=== PATIENT | female | born 1965 | race Caucasian/White ===

== ENCOUNTER 2024-08-02 21:07 | Emergency (ER) | payer OTHER, SELFPAY ==
[2024-08-02 21:12] VITALS: BP 170/99
[2024-08-02 21:35] LABS: % Basophils 0.4 % (0-2); % Eosinophils 0.4 % (0-6); % Immature Granulocytes 0.5 % (0-0.5); % Lymphocytes 17.9 % (20.5-51.1); % Neutrophils 70.8 % (42.2-75.2); Absolute Basophils 0.1 10^3/uL (0-0.2); Absolute Eosinophils 0.1 10^3/uL (0-0.7); Absolute Immature Granulocytes 0.1 10^3/uL (0-0.05); Absolute Lymphocytes 2.5 10^3/uL (1.2-3.4); Absolute Monocytes 1.4 10^3/uL (0.1-0.6); Absolute Neutrophils 10.1 10^3/uL (1.4-6.5); Hematocrit 33.9 % (37.0-47.0); Mean Corp Hgb Conc. 35.4 g/dL (33.0-37.0); Mean Corpuscular Hgb 30.7 pg (27.0-31.0); Mean Corpuscular Volume 86.7 fL (81.0-99.0); Mean Platelet Volume 9.3 fL (7.4-10.4); Nucleated Red Blood Cells % 0 %; Platelet Count 273 10^3/uL (130-400); Red Blood Cell Count 3.91 10^6/uL (4.20-5.40); Red Cell Dist. Width 12.4 % (11.5-14.5); Urine Albumin Trace (Neg - Trace); Urine Bilirubin Negative (Negative); Urine Character Clear (Clear); Urine Color Yellow; Urine Glucose 3+ (Negative); Urine Ketone 2+ (Negative); Urine Leukocyte Negative (Negative); Urine Nitrite Negative (Negative); Urine Occult Blood 3+ (Negative); Urine Urobilinogen Negative (Neg - 1+); Urine pH 6.5 (5.0-9.0); White Blood Cell Count 14.2 10^3/uL (4.8-10.8)
[2024-08-02 21:42] LABS: Urine Red Blood Cell 30-40 /HPF (0-2)
[2024-08-02 21:43] LABS: Urine Bacteria Moderate (Negative)
[2024-08-02 21:47] LABS: ALT (SGPT) 39 U/L (0-35); AST (SGOT) 55 U/L (14-36); Albumin 4.1 g/dl (3.5-5.0); Alkaline Phosphatase 88 U/L (38-126); Blood Urea Nitrogen 14 mg/dl (7-17); Calcium 9.2 mg/dl (8.4-10.2); Carbon Dioxide 24 mmol/L (22-30); Chloride 102 mmol/L (98-107); Glucose 97 mg/dl (70-99); Lactic Acid 1.6 mmol/L (0.7-2.0); Potassium 3.3 mmol/L (3.5-5.1); Sodium 138 mmol/L (135-145); Total Bilirubin 0.7 mg/dl (0.2-1.3); Total Protein 6.9 g/dl (6.3-8.2); eGFR > 60.00
--- NOTE | 2024-08-02 22:50 | ED.GENMED ---
History of Present Illness
General
Chief Complaint: Fever
Source: patient and family
Exam Limitations: none
Time Seen by Provider: 08/02/24 22:43
Nursing documentation reviewed up to this point in time: agreed with
History of Present Illness
History of Present Illness:
59-year-old female presents emergency [facility] complaining of kidney infection. She was recently diagnosed with a UTI and started on antibiotic. She feels she is not getting better, and is having fevers and back pain. No aggravating relieving
factors.
Past History
Past History
ED Past Medical History: Other (DJD, back, Renal calculus, Lyme, endometriosis)
ED Past Surgical History: Appendectomy and Urological (Renal stent right)
Social History
Tobacco: Smoker
Alcohol: None
Drug: None
Personal:
Living: with family (Son)
Review of Systems
Review of Systems
Allergies reviewed?: Yes
All Other Systems: Not applicable
Constitutional: Reports fever
EENT: Reports no symptoms
Respiratory: Reports no symptoms
Cardiac: Reports no symptoms
ABD/GI: Reports no symptoms
: Reports flank pain
Musculoskeletal: Reports no symptoms
Skin: Reports no symptoms
Neurological: Reports no symptoms
Endocrine: Reports no symptoms
Hematologic/Lymphatic: Reports no symptoms
Psychiatric: Reports no symptoms
Phy Exam
Physical Exam
Physical Exam:
Physical Exam
General: no apparent distress, not acutely ill
Neck: supple. no meningeal signs. normal posterior pharynx
Heart: s1/s2 regular rate and rhythm, no murmur. equal radial
pulses.
HEENT: Pupils equal round reactive to light, EOMI, right TM erythematous, but no perforation
Lungs: no acute respiratory distress. clear bilaterally
Abdomen: normal bowel sounds. not tender. Bilateral CVAT
Neuro: alert and oriented. no focal neurological deficits cranial nerves II through XII intact
Skin: no rash
Psychiatric: well kept. interactive and cooperative
Extremities: no edema. no calf tenderness. negative homans. good distal pulses
Course
Orders/Labs/Results
Orders:
Orders
08/02/24 21:24
Complete Blood Count/With Diff Urgent
Comprehensive Metabolic Panel Urgent
Lactic Acid Urgent
Urine Culture Reflexed from UA [Urinalysis Reflex To Culture] Urgent
Date Specimen was Collected: 08/02/24
Time Specimen was Collected: 21:18
Urine Microscopic Reflex Cult Urgent
Urine Culture Urgent
TOMAS Source: U
Specimen Description:
Date Specimen was Collected: 08/02/24
Time Specimen was Collected: 21:18
08/02/24 22:50
COVID-19 Antigen Urgent
Source: Nasal Swab
08/03/24 00:15
CT Abd/pel Without Iv Or Oral Urgent
Reason For Exam: bilateral flank pain, fever, hematuria
08/03/24 01:34
Acetaminophen [Tylenol] 650 mg PO NOW STA
Azithromycin [Zithromax] 500 mg PO NOW STA
Abnormal Lab Results
08/02/24
21:24
WBC 14.2 H 10^3/uL
(4.8-10.8)
RBC 3.91 L 10^6/uL
(4.20-5.40)
Hct 33.9 L %
(37.0-47.0)
Abs Immat Gran (auto) 0.1 H 10^3/uL
(0-0.05)
Absolute Neuts (auto) 10.1 H 10^3/uL
(1.4-6.5)
Absolute Monos (auto) 1.4 H 10^3/uL
(0.1-0.6)
Lymphocytes % 17.9 L %
(20.5-51.1)
Monocytes % 10.0 H %
(1.7-9.3)
Potassium 3.3 L mmol/L
(3.5-5.1)
Creatinine 0.5 L mg/dL
(0.6-1.0)
AST 55 H U/L
(14-36)
ALT 39 H U/L
(0-35)
Urine Ketones 2+ A
(Negative)
Ur Occult Blood Reflex 3+ A
(Negative)
Urine RBC 30-40 A /HPF
(0-2)
Urine Bacteria (Reflex) Moderate A
(Negative)
Urine Glucose 3+ A
(Negative)
08/02/24 21:24
08/02/24 21:24
Vital Signs
Initial and Last Documented VS:
Initial Vital Signs
Pulse Resp BP Pulse Ox
102 20 170/99 99
08/02/24 21:12 08/02/24 21:12 08/02/24 21:12 08/02/24 21:12
Last Documented Vital Signs
Pulse Resp BP Pulse Ox
89 17 156/90 98
08/02/24 23:45 08/02/24 23:45 08/02/24 23:45 08/02/24 23:45
MDM/Problems Addressed
Differential Diagnosis Includes:
UTI, kidney stones
MDM/Problems Addressed:
59-year-old female with constipation, no signs of nephrolithiasis. Right otitis media.
Chronic conditions affecting care: HTN
Acute Exacerbation and/or Progression of Chronic Illness: HTN
*Radiology
Radiology exam reviewed: radiology read reviewed (ct a/p: no acute findings, moderate stool burden)
*Pulse Oximetry
Patient hypoxic: no
*Critical Care Note
Total Time (30-74mins, 75-104mins- exclusive of procedures): Not Applicable
Patient Management
Social determinants of health affecting care: Living situation
Escalation/DeEscalation of care consider admission/obs:
admit not indicated
ED Attending Note
-
Portions of this chart may have been created with voice recognition software.� Occasional wrong word or��sound alike� substitutions may have occurred due to the inherent limitations of voice recognition software.
Discharge Plan
Departure
Patient Disposition: Home (Routine Discharge)
Date of Disposition: 08/03/24
Time of Disposition: 01:37
Patient with high blood pressure during this ER visit?: Yes
Condition: Good
Covid-19: Negative COVID-19
Discharge Problem:
Constipation, Acute otitis media, right
Instructions: Constipation, Adult ED, Ear Infections in Adults (DC), BLOOD PRESSURE
Prescriptions:
New
azithromycin 250 mg tablet
250 mg PO DAILY 4 Days Qty: 4 0RF
No Action
acetaminophen 325 mg Tablet
650 mg PO Q4HPRN PRN (Reason: Mild Pain / Temp > 101) Qty: 20 0RF
ibuprofen 800 mg Tablet
800 mg PO DAILY
Patient Comments:
patient only took 200 mg
metoprolol succinate [metoprolol succinate] 25 mg tablet extended release 24 hr
25 mg PO DAILY Qty: 90 10RF
Entresto 24-26 mg tablet
1 tab PO BID Qty: 180 5RF
Farxiga 10 mg tablet
10 mg PO DAILY Qty: 90 5RF
Referrals:
Karolina Ham, DO [Active] - Call in 1-3 days for appt
NONE,* [Family Provider] -
Interventions
Interventions:
*Risk Screen - Suicide Last Done: 08/02/24 21:12
*General Assessment Last Done: 08/02/24 21:12
*Neglect/Abuse Screening Last Done: 08/02/24 21:12
ED- Fall Risk Assessment Last Done: 08/02/24 23:38
*ED COVID-19 Vaccine History Last Done: 08/03/24 00:00
ED- Neurological Assessment Last Done: 08/02/24 23:38
ED-Skin Assessment Last Done: 08/02/24 23:38
Discharge Date and Time
Print Language: KAZAKH
[2024-08-02 23:45] VITALS: BP 156/90
[2024-08-03 00:50] LABS: COVID-19 Antigen Negative (Negative)
[2024-08-03] MEDS: TYLENOL 650 MG PO (01:55)
[2024-08-03] MEDS: ZITHROMAX 500 MG PO (01:56)
[2024-08-03 02:03] VITALS: BP 142/88
== END 2024-08-03 02:07 | disposition home or self-care (01) ==
LOC: EMR 21:07
PROVIDERS: Emergency Medicine; EMERGENCY PHYSICIAN Emergency Medicine
DX: K59.00 Constipation, unspecified (principal); H66.91 Otitis media, unspecified, right ear; F17.200 Nicotine dependence, unspecified, uncomplicated
CPT/HCPCS: 99284; 74176; 80053; 81003; 81015; 83605; 85025; 87086; 87811

== ENCOUNTER 2025-03-09 21:40 | Emergency (ER) | payer OTHER, SELFPAY ==
[2025-03-09 21:42] VITALS: BP 154/96
[2025-03-09 22:09] LABS: Urine Albumin 1+ (Neg - Trace); Urine Bilirubin Negative (Negative); Urine Character Slightly Cloudy (Clear); Urine Color Yellow; Urine Glucose Negative (Negative); Urine Ketone Negative (Negative); Urine Leukocyte 3+ (Negative); Urine Nitrite Negative (Negative); Urine Occult Blood 3+ (Negative); Urine Specific Gravity 1.015 (<1.030); Urine Urobilinogen Negative (Neg - 1+)
[2025-03-09 22:15] LABS: Urine Squamous Cell 26-30 /LPF (Few)
[2025-03-09 22:16] LABS: Urine Bacteria Moderate (Negative); Urine White Cell >100 /HPF (0-5)
[2025-03-09 22:24] LABS: % Basophils 0.4 % (0-2); % Eosinophils 0.5 % (0-6); % Immature Granulocytes 0.3 % (0-0.5); % Lymphocytes 45.9 % (20.5-51.1); % Monocytes 5.3 % (1.7-9.3); % Neutrophils 47.6 % (42.2-75.2); ALT (SGPT) 13 U/L (0-35); AST (SGOT) 21 U/L (14-36); Absolute Eosinophils 0.1 10^3/uL (0-0.7); Absolute Lymphocytes 4.5 10^3/uL (1.2-3.4); Absolute Monocytes 0.5 10^3/uL (0.1-0.6); Absolute Neutrophils 4.7 10^3/uL (1.4-6.5); Albumin 4.5 g/dl (3.5-5.0); Alkaline Phosphatase 66 U/L (38-126); Blood Urea Nitrogen 15 mg/dl (7-17); Calcium 10.4 mg/dl (8.4-10.2); Carbon Dioxide 28 mmol/L (22-30); Chloride 107 mmol/L (98-107); Glucose 107 mg/dl (70-99); Hematocrit 40.7 % (37.0-47.0); Hemoglobin 13.7 g/dL (12.0-16.0); Lipase 78 U/L (23-300); Mean Corp Hgb Conc. 33.7 g/dL (33.0-37.0); Mean Corpuscular Hgb 30.3 pg (27.0-31.0); Mean Platelet Volume 8.9 fL (7.4-10.4); Nucleated Red Blood Cells % 0 %; Platelet Count 322 10^3/uL (130-400); Potassium 4.7 mmol/L (3.5-5.1); Red Blood Cell Count 4.52 10^6/uL (4.20-5.40); Red Cell Dist. Width 13.1 % (11.5-14.5); Sodium 143 mmol/L (135-145); Total Bilirubin 0.4 mg/dl (0.2-1.3); Total Protein 7.6 g/dl (6.3-8.2); White Blood Cell Count 9.8 10^3/uL (4.8-10.8); eGFR > 60.00
[2025-03-10] MEDS: TORADOL 30 MG IV (00:11)
[2025-03-10] MEDS: NSS 1000 IV (00:12)
[2025-03-10] MEDS: MORPHINE SULFATE 4 MG IV (00:12)
[2025-03-10 00:18] VITALS: BP 140/106
[2025-03-10 00:25] LABS: Urine Albumin Negative (Neg - Trace); Urine Bilirubin Negative (Negative); Urine Character Clear (Clear); Urine Color Yellow; Urine Glucose Negative (Negative); Urine Ketone Negative (Negative); Urine Leukocyte 3+ (Negative); Urine Nitrite Negative (Negative); Urine Occult Blood 1+ (Negative); Urine Urobilinogen Negative (Neg - 1+)
[2025-03-10 00:39] LABS: Urine Squamous Cell 16-20 /LPF (Few)
[2025-03-10 00:40] LABS: Urine Bacteria Many (Negative); Urine White Cell 26-30 /HPF (0-5)
[2025-03-10 01:45] VITALS: BP 146/105
[2025-03-10] MEDS: OMNICEF 300 MG PO (01:52)
--- NOTE | 2025-03-10 02:34 | ED.GENMED ---
History of Present Illness
General
Chief Complaint: Flank Pain
Source: patient
Exam Limitations: none
Time Seen by Provider: 03/09/25 23:18
Nursing documentation reviewed up to this point in time: agreed with
History of Present Illness
History of Present Illness:
pt is a 59 y/o F
with h/o infected kidney stones
CHF/cardiomyopathy
here with R back/hip pain
sometimes shoots into her R upper posterior thigh
worse with walking/changing position
no trauma
started about 4-5 days ago; went to and was given muscle relaxant but it hasn't helped; takes tylenol and motrin regularly already without relief
no weakness/numbness, incontiennce but felt like she wanted to make sure this wasn't pain from kidney infection or stone
no dysuria, hematuria, fever/chills, vomiting
does have h/o arthritis
no chronic opiates
Past History
Past History
ED Past Medical History: Other (DJD, back, Renal calculus, Lyme, endometriosis)
ED Past Surgical History: Appendectomy and Urological (Renal stent right)
Social History
Tobacco: Smoker
Alcohol: None
Drug: None
Personal:
Living: with family (Son)
Review of Systems
Review of Systems
Allergies reviewed?: Yes
All Other Systems: Not applicable
Phy Exam
Physical Exam
Physical Exam:
GENERAL: Alert , in no apparent distress, comfortable at rest
HEAD: NCAT
NECK: no midline tenderness, active ROM intact, no paraspinal muscle tenderness;
CARDIAC: Regular rate and rhythm, no edema
LUNGS: Clear breath sounds bilaterally, no acute respiratory distress, no wheezes/rales/rhonchi
ABDOMEN: Soft, without focal tenderness, no r/g, no cvat, normal bowel sounds, nondistended
NEUROLOGICAL: Alert and oriented, no focal neuro deficits, CN intact, 5/5 strength, sensation intact, ambulation slight limp left leg
SKIN: Warm and dry,
MUSCULOSKELETAL: No edema, well perfused. Normal inspection of the right hip/right leg
Patient has no tenderness to palpation of the hip, minimal tenderness in the SI joint
able to flex R hip but some pain with rotation;
Back: No midline tenderness, mild dextroscoliosis, mod R paraspinal tendernss and SI joint tendenress
neg straight leg raise
but most pain is with flexino of the hip
PSYCH: Normal and appropriate interaction.
Course
Orders/Labs/Results
Orders:
Orders
03/09/25 21:58
Complete Blood Count/With Diff Urgent
Comprehensive Metabolic Panel Urgent
Lipase Urgent
Urinalysis Reflex To Culture Urgent
Date Specimen was Collected: 03/09/25
Time Specimen was Collected: 21:45
Urine Microscopic Reflex Cult Urgent
Urine Culture Urgent
TOMAS Source: U
Specimen Description:
Date Specimen was Collected: 03/09/25
Time Specimen was Collected: 21:45
03/09/25 23:54
0.9% Sodium Chloride 1000 ml [Nss] 1,000 ml IV BOLUS
Ketorolac [Toradol] 30 mg IV NOW STA
Morphine Sulfate 4 mg IV NOW STA
03/09/25 23:55
Urinalysis Reflex To Culture Urgent
Date Specimen was Collected: 03/10/25
Time Specimen was Collected: 00:04
03/10/25 00:01
CT Abd/pel Without Iv Or Oral Urgent
Reason For Exam: R flank pain
03/10/25 00:16
Urine Microscopic Reflex Cult Urgent
Urine Culture Urgent
TOMAS Source: U
Specimen Description:
Date Specimen was Collected: 03/10/25
Time Specimen was Collected: 00:04
03/10/25 01:45
Cefdinir [Omnicef] 300 mg PO NOW STA
Abnormal Lab Results
03/09/25 03/10/25
21:58 00:16
Absolute Lymphs (auto) 4.5 H 10^3/uL
(1.2-3.4)
Glucose 107 H mg/dl
(70-99)
Calcium 10.4 H mg/dl
(8.4-10.2)
Ur Occult Blood Reflex 3+ A 1+ A
(Negative) (Negative)
Leukocyte Esterase Rfl 3+ A 3+ A
(Negative) (Negative)
Urine RBC 3-6 A /HPF 3-6 A /HPF
(0-2) (0-2)
Urine WBC (Reflex) >100 A /HPF 26-30 A /HPF
(0-5) (0-5)
Urine Bacteria (Reflex) Moderate A Many A
(Negative) (Negative)
Urine Albumin (Reflex) 1+ A
(Neg - Trace)
03/09/25 21:58
03/09/25 21:58
Vital Signs
Initial and Last Documented VS:
Initial Vital Signs
Temp Pulse Resp BP Pulse Ox
36.8 C 115 16 154/96 98
03/09/25 21:42 03/09/25 21:42 03/09/25 21:42 03/09/25 21:42 03/09/25 21:42
Last Documented Vital Signs
Temp Pulse Resp BP Pulse Ox
36.8 C 110 18 146/105 98
03/09/25 21:42 03/10/25 01:45 03/10/25 01:45 03/10/25 01:45 03/10/25 01:45
MDM/Problems Addressed
Differential Diagnosis Includes:
hip pain, OA, radiculopathy, uti, kidney infction, stone
MDM/Problems Addressed:
59 y/o F
h/o previous infected kidney stone/sepsis urine culture pos for kleb and e coli, sensitive to cephalosporins
here with R hip/hussain pain, positional, worse with walking x 4-5 days
no injury
no numbness/tingling/weakness
no fever/chills
no urinary syptoms
trie dmotrin and muscle relaxants but no relief
i agree that pt seems to have MSK hip pain or radiculopathy
but her urine did result and seems contaminated though maybe infected
she has had infected stone so risk/benefit of CT waas discussed and we opted to image
no kidney stone; some constipation; no osseous concerns
i tried to ahve pt repeat the UA but it is still contaminated; but will cover with abx
add pain meds, as pain is more likeyl MSK;
*Critical Care Note
Total Time (30-74mins, 75-104mins- exclusive of procedures): Not Applicable
ED Attending Note
-
Portions of this chart may have been created with voice recognition software.� Occasional wrong word or��sound alike� substitutions may have occurred due to the inherent limitations of voice recognition software.
Discharge Plan
Departure
Patient Disposition: Home (Routine Discharge)
Date of Disposition: 03/10/25
Time of Disposition: 02:03
Patient with high blood pressure during this ER visit?: No
Condition: Fair
Covid-19: Not Applicable
Discharge Problem:
UTI (urinary tract infection), Acute hip pain
Instructions: Hip Pain ED, Urinary tract infection in adults - ED discharge instructions
Prescriptions:
New
cefdinir 300 mg capsule
300 mg PO BID Qty: 14 0RF
hydrocodone-acetaminophen 5-325 mg tablet
1 tab PO Q8H PRN (Reason: Pain) Qty: 10 0RF
No Action
acetaminophen 325 mg Tablet
650 mg PO Q4HPRN PRN (Reason: Mild Pain / Temp > 101) Qty: 20 0RF
ibuprofen 800 mg Tablet
800 mg PO DAILY
Patient Comments:
patient only took 200 mg
metoprolol succinate [metoprolol succinate] 25 mg tablet extended release 24 hr
25 mg PO DAILY Qty: 90 10RF
Entresto 24-26 mg tablet
1 tab PO BID Qty: 180 5RF
Farxiga 10 mg tablet
10 mg PO DAILY Qty: 90 5RF
azithromycin 250 mg tablet
250 mg PO DAILY 4 Days Qty: 4 0RF
Referrals:
NONE,* [Family Provider] -
Stand Alone Forms: Return to Work
Activity Restrictions/Additional Instructions:
YOUR WORK UP SHOWS THAT YOUR URINE LOOKS INFECTED
BUT YOU DO NOT HAVE A KIDNEY STONE
YOUR PAIN COULD BE MUSCULAR
CONTINUE IBUPROFEN NEEDED FOR PAIN 3 TIMES ADAY WITH FOOD
FOR ADDITIONAL PAIN YOU CAN TRY VIDOCIN EVERY 6 HOURS NEEDED
THIS HAS TYLENOL IN IT
THIS IS A NARCOTIC
TAKE A LAXATIVE WELL OR A STOOL SOFTENER BECAUSE YOU DO HAVE SOME CONSTIPATION
FOR INFECTION USE CEFDINIR TWICE A DAY FO R7 DAYS
DRINK FLUIDS
STAY HYDRATED
RETURN FOR ANY CONCERNS: SEVERE AKIRA, FEVER, VOMITING, INABILITY TO WALK, HIP REDNESS, NUMBNESS IN THE LEG OR ANY CONCERNS.
Interventions
Interventions:
*Risk Screen - Suicide Last Done: 03/09/25 22:46
*General Assessment Last Done: 03/09/25 22:46
*Neglect/Abuse Screening Last Done: 03/09/25 22:46
*ED- Fall Risk Assessment Last Done: 03/09/25 22:46
*ED COVID-19 Vaccine History Last Done: 03/09/25 22:46
*Nursing Disposition Last Done: 03/10/25 02:07
XP-Yuhijj-Aakkryuruq Assessment Last Done: 03/09/25 22:45
Discharge Date and Time
Discharge Date/Time: 03/10/25 02:07
Print Language: CAMEROONIAN
== END 2025-03-10 02:07 | disposition home or self-care (01) ==
LOC: EMR 21:40
PROVIDERS: Physician Assistant; EMERGENCY PHYSICIAN Student in an Organized Health Care Education/Training Program
DX: N39.0 Urinary tract infection, site not specified (principal); M25.551 Pain in right hip; I50.9 Heart failure, unspecified; F17.200 Nicotine dependence, unspecified, uncomplicated; I42.9 Cardiomyopathy, unspecified; K59.00 Constipation, unspecified; M19.90 Unspecified osteoarthritis, unspecified site; Z87.442 Personal history of urinary calculi; Z90.49 Acquired absence of other specified parts of digestive tract
CPT/HCPCS: 96374; 96375; 96361; 99284; 74176; 80053; 81003; 81015; 83690; 85025; 87086